=== PATIENT | male | born 1950 | race Hispanic/Latino ===

== ENCOUNTER 2017-04-23 16:05 | Outpatient (CLI) | payer BC ==
[2017-04-24 15:58] LABS: Creatinine, Urine 68.43 mg/dL (63-166)
== END 2017-04-23 16:06 | disposition home or self-care (01) ==
LOC: MADLAB 16:05
PROVIDERS: ATTEND Internal Medicine Nephrology
DX: I12.9 Hypertensive chronic kidney disease with stage 1 through stage 4 chronic kidney disease, or unspecified chronic kidney disease (principal); N18.2 Chronic kidney disease, stage 2 (mild); R80.9 Proteinuria, unspecified
CPT/HCPCS: 82570; 84156